=== PATIENT | male | born 1990 | race African-American/Black ===

== ENCOUNTER 2020-08-31 01:12 | Emergency (ER) | payer OTHER, SELFPAY ==
--- NOTE | ~2020-08-31 | XR_ITS ---
EXAMINATION: XR TIBIA AND FIBULA, RIGHT CLINICAL INFORMATION: SOFT TISSUE FLUID ACCUMULATION LATERAL RIGHT LEG, INJURY 1 M COMPARISON: None TECHNIQUE: AP and lateral views of the right tibia and fibula were obtained. FINDINGS: Anterolateral soft tissue swelling and and subcutaneous edema are noted. No radiodense foreign bodies. No subcutaneous gas. Bone mineralization is normal. Imaged portions of the knee and ankle are unremarkable. XR/XR tibia fibula RT 2V IMPRESSION: Anterolateral soft tissue swelling and subcutaneous edema at the right lower leg. No acute osseous findings.
[2020-08-31 01:20] VITALS: BP 140/86; PULSE 92; RESP 16; TEMP 36.3; O2SAT 96; BMI 32.8
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
== END 2020-08-31 03:18 | disposition home or self-care (01) ==
PROVIDERS: Emergency Provider Student in an Organized Health Care Education/Training Program; PCP Internal Medicine
DX: T79.2XXA Traumatic secondary and recurrent hemorrhage and seroma, initial encounter (principal); V09.9XXA Pedestrian injured in unspecified transport accident, initial encounter; Y93.9 Activity, unspecified; Y92.9 Unspecified place or not applicable; Y99.9 Unspecified external cause status
CPT/HCPCS: 73590; 99283